=== PATIENT | male | born 1995 | race Caucasian/White ===

== ENCOUNTER 2018-09-25 16:51 | Emergency (ER) | payer BC ==
[2018-09-25] MEDS ORDERED: Sodium Chloride 0.9% 1000 ML 1,000 ML ONE (17:05)
[2018-09-25] MEDS ORDERED: Sodium Chloride 0.9% 1000 ML 1,000 ML IV STA (17:14)
--- NOTE | 2018-09-25 17:20 | ERPHSYRPT ---
- History of Present Illness Time Seen by Provider: 09/25/18 17:05 Source: patient, family Exam Limitations: clinical condition, intoxication Physician History: 23 y/o white male presents intoxicated with etoh [employer]. pts spouse and brother in law state pt began drinking mixed drinks of etoh and root beer at noon. they went to pick him up and he was vomiting and minimally responsive so they brought him here. he was not trying to over dose. just having fun Timing/Duration: today Severity: moderate Associated Symptoms: vomiting - Review of Systems Constitutional: No Symptoms Eyes: No Symptoms Ears, Nose, & Throat: No Symptoms Respiratory: No Symptoms Cardiac: No Symptoms Abdominal/Gastrointestinal: Vomiting Genitourinary Symptoms: No Symptoms Musculoskeletal: No Symptoms Skin: No Symptoms Neurological: Other (intoxication) Psychological: No Symptoms Endocrine: No Symptoms Hematologic/Lymphatic: No Symptoms Immunological/Allergic: No Symptoms All Other Systems: Reviewed and Negative - Past Medical History Pertinent Past Medical History: No Neurological History: No Pertinent History ENT History: No Pertinent History Cardiac History: No Pertinent History Respiratory History: No Pertinent History Endocrine Medical History: No Pertinent History Musculoskeletal History: No Pertinent History GI Medical History: No Pertinent History History: No Pertinent History Psycho-Social History: No Pertinent History Male Reproductive Disorders: No Pertinent History - Past Surgical History Past Surgical History: No Neuro Surgical History: No Pertinent History Cardiac: No Pertinent History Respiratory: No Pertinent History Gastrointestinal: No Pertinent History Genitourinary: No Pertinent History Musculoskeletal: No Pertinent History Male Surgical History: No Pertinent History - Nursing Vital Signs Nursing Vital Signs: Initial Vital Signs Pulse Rate 111 H 09/25/18 17:08 Respiratory Rate 20 09/25/18 17:08 Blood Pressure 153/90 09/25/18 17:08 O2 Sat by Pulse Oximetry 96 09/25/18 17:08 Pain Scale Pain Intensity 0 - Physical Exam General Appearance: moderate distress, alert, lethargy, other (intoxicated) Eye Exam: PERRL/EOMI Ears, Nose, Throat Exam: normal ENT inspection, moist mucous membranes Neck Exam: normal inspection, non-tender, supple, full range of motion Respiratory Exam: normal breath sounds, lungs clear, airway intact, No chest tenderness, No respiratory distress, No accessory muscle use, No rhonchi, No wheezing, No stridor Cardiovascular Exam: regular rate/rhythm, normal heart sounds, normal peripheral pulses Gastrointestinal/Abdomen Exam: soft, normal bowel sounds, No tenderness, No guarding, No rebound Rectal Exam: not done Back Exam: normal inspection, normal range of motion, vertebral tenderness, No CVA tenderness Extremity Exam: normal inspection, normal range of motion, pelvis stable Neurologic Exam: alert, oriented x 3, cooperative, other (intoxicated with etoh) Skin Exam: normal color, warm, dry Lymphatic Exam: No adenopathy SpO2 Interpretation: normal Oxygen Delivery: Room Air - Course Nursing assessment & vital signs reviewed: Yes Ordered Tests: Active Orders 24 hr Category Date Time Status Clean Catch Urine Specimen STAT Care 09/25/18 17:16 Active IV Insertion STAT Care 09/25/18 17:14 Active BMP Stat Lab 09/25/18 17:40 Completed CBC W DIFF Stat Lab 09/25/18 17:40 Completed ETHYL ALCOHOL Stat Lab 09/25/18 17:40 Completed UA W/RFX UR CULTURE Stat Lab 09/25/18 17:55 Completed Urine Triage Profile Stat Lab 09/25/18 17:55 Received Medication Summary Discontinued Medications Generic Name Dose Route Start Last Admin Trade Name Jim PRN Reason Stop Dose Admin Sodium Chloride Confirm 09/25/18 17:05 Sodium Chloride 0.9% 1000 Ml Administered 09/25/18 17:06 Dose 1,000 mls @ ud .ROUTE .STK-MED ONE Sodium Chloride 1,000 mls @ 999 mls/hr 09/25/18 17:14 09/25/18 17:19 Sodium Chloride 0.9% 1000 Ml IV 09/25/18 18:14 999 mls/hr .Q1H1M STA Administration Lab/Rad Data: Laboratory Result Diagrams 09/25/18 17:40 09/25/18 17:40 Laboratory Results 09/25/18 09/25/18 09/25/18 Range/Units 17:55 17:40 17:40 WBC 7.7 (4.0-10.5) K/mm3 RBC 4.97 (4.1-5.6) M/mm3 Hgb 14.9 (12.5-18.0) gm/dl Hct 44.0 (42-50) % MCV 88.5 (78-100) fl MCH 30.0 (26-32) pg MCHC 33.9 (32-36) g/dl RDW 12.8 (11.5-14.0) % Plt Count 229 (150-450) K/mm3 MPV 9.1 (6-9.5) fl Gran % 54.0 (36.0-66.0) % Eos # (Auto) 0.09 (0-0.5) Absolute Lymphs (auto) 2.78 (1.0-4.6) Absolute Monos (auto) 0.65 (0.0-1.3) Lymphocytes % 36.1 (24.0-44.0) % Monocytes % 8.4 (0.0-12.0) % Eosinophils % 1.2 (0.00-5.0) % Basophils % 0.3 (0.0-0.4) % Absolute Granulocytes 4.17 (1.4-6.9) Basophils # 0.02 (0-0.4) Sodium 142 (137-145) mmol/L Potassium 3.4 L (3.5-5.1) mmol/L Chloride 108 H (98-107) mmol/L Carbon Dioxide 21 L (22-30) mmol/L Anion Gap 16.7 H (5-15) MEQ/L BUN 12 (9-20) mg/dL Creatinine 0.83 (0.66-1.25) mg/dL Estimated GFR > 60.0 ML/MIN Glucose 93 (74-106) mg/dL Calcium 8.7 (8.4-10.2) mg/dL Urine Color STRAW (YELLOW) Urine Appearance CLEAR (CLEAR) Urine pH 5.0 (5-6) Ur Specific [place] 1.004 (1.005-1.025) Urine Protein NEGATIVE (Negative) Urine Ketones NEGATIVE (NEGATIVE) Urine Blood NEGATIVE (0-5) John/ul Urine Nitrite NEGATIVE (NEGATIVE) Urine Bilirubin NEGATIVE (NEGATIVE) Urine Urobilinogen NEGATIVE (0-1) mg/dL Ur Leukocyte Esterase NEGATIVE (NEGATIVE) Urine WBC (Auto) NONE (0-5) /HPF Urine RBC (Auto) NONE (0-2) /HPF U Epithel Cells (Auto) NONE (FEW) /HPF Urine Bacteria (Auto) NONE (NEGATIVE) /HPF Urine Mucus (Auto) SLIGHT (NEGATIVE) /HPF Urine Culture Reflexed NO (NO) Urine Glucose NEGATIVE (NEGATIVE) mg/dL Ethyl Alcohol 203 H (0-10) mg/dL - Progress Progress: improved Progress Note: 09/25/18 18:26 pt now awake and much more alert. n/v resolved after ivf and zofran Counseled pt/family regarding: lab results, diagnosis, need for follow-up - Departure Time of Disposition: 18:27 Departure Disposition: Home Clinical Impression: Alcohol intoxication, Vomiting Condition: Stable Critical Care Time: No Referrals: ANNMARIE WALTER [Primary Care Provider] - Additional Instructions: drink plenty of nonalcoholic clear liquids ie gatorade, soups, jello, juices. Prescriptions: Ondansetron HCl [Zofran] 4 mg PO TID PRN #10 tablet PRN Reason: Nausea/Vomiting
[2018-09-25 17:57] LABS: BASOPHIL % 0.3 % (0.0-0.4); Basophil (Absolute #) 0.02 (0-0.4); Eosinophil % 1.2 % (0.00-5.0); Eosinophil (Absolute #) 0.09 (0-0.5); Granulocyte Absolute (ANC) 4.17 (1.4-6.9); Hemoglobin 14.9 gm/dl (12.5-18.0); Lymphocyte (Absolute #) 2.78 (1.0-4.6); Lymphocytes % 36.1 % (24.0-44.0); Mean Cell Volume 88.5 fl (78-100); Mean Corpuscular Hgb Concent. 33.9 g/dl (32-36); Mean Platelet Volume 9.1 fl (6-9.5); Monocyte (Absolute #) 0.65 (0.0-1.3); Monocytes % 8.4 % (0.0-12.0); Platelet Count 229 K/mm3 (150-450); Red Blood Count 4.97 M/mm3 (4.1-5.6); Red Cell Distribution Width 12.8 % (11.5-14.0); White Blood Count 7.7 K/mm3 (4.0-10.5)
[2018-09-25 18:05] VITALS: BP 146/96; O2SAT 97
[2018-09-25 18:14] LABS: ANION GAP 16.7 MEQ/L (5-15); BLOOD UREA NITROGEN 12 mg/dL (9-20); CHLORIDE 108 mmol/L (98-107); Calcium 8.7 mg/dL (8.4-10.2); Carbon Dioxide 21 mmol/L (22-30); Creatinine 1 0.83 mg/dL (0.66-1.25); ETHYL ALCOHOL 203 mg/dL (0-10); Glucose 93 mg/dL (74-106); Potassium 3.4 mmol/L (3.5-5.1); SODIUM 142 mmol/L (137-145)
[2018-09-25 18:17] LABS: Appearance CLEAR (CLEAR); Bilirubin NEGATIVE (NEGATIVE); Blood NEGATIVE Ery/ul (0-5); Glucose NEGATIVE (NEGATIVE); Ketones NEGATIVE (NEGATIVE); Leukocyte Esterase NEGATIVE (NEGATIVE); Nitrite NEGATIVE (NEGATIVE); Protein,Urine Dip NEGATIVE (Negative); Specific Gravity 1.004 (1.005-1.025); Urobilinogen NEGATIVE mg/dL (0-1)
[2018-09-25 18:29] LABS: Amphetamine,Urine NEGATIVE (NEGATIVE); Barbiturate,Urine NEGATIVE (NEGATIVE); Benzodiazepine,Urine NEGATIVE (NEGATIVE); Cocaine,Urine NEGATIVE (NEGATIVE); Methadone,Urine NEGATIVE (NEGATIVE); Opiate,Urine NEGATIVE (NEGATIVE); PCP,Urine NEGATIVE (NEGATIVE); THC,Urine NEGATIVE (NEGATIVE)
[2018-09-25] MEDS ORDERED: Pepcid 20 MG VIAL IV ONE ×2 (18:52)
[2018-09-25 19:10] VITALS: PULSE 99
== END 2018-09-25 19:20 | disposition home or self-care (01) ==
LOC: ED 16:51
DX: F10.929 Alcohol use, unspecified with intoxication, unspecified (principal); R11.10 Vomiting, unspecified
CPT/HCPCS: 36000; 36415; 80048; 80307; 81001; 85025; 96360; 96374; 96375; 99284; G0480

== ENCOUNTER 2023-02-18 18:24 | Emergency (ER) | payer BC ==
[2023-02-18] MEDS ORDERED: SUBLIMAZE 100 MCG/2 ML IV ONE ×2 (19:04→19:24)
[2023-02-18] MEDS ORDERED: Zofran 4 MG/2 ML VIAL IV ONE (19:04)
[2023-02-18] MEDS ORDERED: SUBLIMAZE 100 MCG/2 ML ONE ×2 (19:04→19:32)
[2023-02-18] MEDS ORDERED: Zofran 4 MG/2 ML VIAL ONE (19:06)
--- NOTE | 2023-02-18 19:35 | ERPHSYRPT ---
- History of Present Illness Time Seen by Provider: 02/18/23 19:15 Source: patient Exam Limitations: no limitations Patient Subjective Stated Complaint: PT states "I jumped off the dock and popped my shoulder out." Triage Nursing Assessment: Pt presented alert and oriented X 3, skin pwd. Pt ambulates with an upright steady gait, able to speak in clear full sentences pt left shoulder has deformity, CSM X 4. Physician History: Left shoulder pain Patient complains dislocating shoulder jumping off of a dock Hx of prior dislocations and deltoid surgery on the left shoulder Patient cannot sleep unaffected side. Symptoms have been present for months. Labor intensive work, carries heavy objects. Pain relieved w/ NSAIDs. Denies any injuries or previous surgeries. No instability symptoms. No numbness and tingling. Occurred: just prior to arrival Method of Injury: fell Quality: throbbing Severity of Pain-Max: severe Severity of Pain-Current: severe Extremities Pain Location: shoulder: left Modifying Factors: Worsens With: movement Allergies/Adverse Reactions: clarithromycin [From Biaxin] Allergy (Verified 09/25/18 18:55) promethazine [From Phenergan] Allergy (Verified 09/25/18 18:55) Hx Tetanus, Diphtheria Vaccination/Date Given: Yes Hx Influenza Vaccination/Date Given: No Hx Pneumococcal Vaccination/Date Given: No Immunizations Up to Date: Yes Travel Risk - International Travel Have you traveled outside of the country in past 3 weeks: No - Coronavirus Screening Are you exhibiting any of the following symptoms?: No Close contact with a COVID-19 positive Pt in past 14-21 Days: No - Vaccine Status Have you recieved a Covid-19 vaccination: No - Review of Systems Constitutional: No Symptoms Musculoskeletal: Injury, Joint Pain (left shoulder) Skin: No Symptoms Neurological: No Symptoms - Past Medical History Pertinent Past Medical History: Yes Neurological History: No Pertinent History ENT History: No Pertinent History Cardiac History: No Pertinent History Respiratory History: No Pertinent History Endocrine Medical History: No Pertinent History Musculoskeletal History: No Pertinent History GI Medical History: No Pertinent History History: No Pertinent History Psycho-Social History: No Pertinent History Male Reproductive Disorders: No Pertinent History - Past Surgical History Past Surgical History: Yes Neuro Surgical History: No Pertinent History Cardiac: No Pertinent History Respiratory: No Pertinent History Gastrointestinal: No Pertinent History Genitourinary: No Pertinent History Musculoskeletal: No Pertinent History Male Surgical History: No Pertinent History Other Surgical History: left shoulder surgery - Social History Smoking Status: Unknown if ever smoked Exposure to second hand smoke: No Drug Use: none Patient Lives Alone: No - Nursing Vital Signs Nursing Vital Signs: Initial Vital Signs Temperature 97.6 F 02/18/23 18:32 Pulse Rate 89 02/18/23 18:32 Respiratory Rate 20 02/18/23 18:32 Blood Pressure 130/90 02/18/23 18:32 O2 Sat by Pulse Oximetry 98 02/18/23 18:32 Pain Scale Pain Intensity 0 - Physical Exam General Appearance: mild distress Shoulder Exam: deformity (left), limited ROM, pain Elbow/Forearm Exam: normal inspection, no evidence of injury Wrist Exam: normal inspection, no evidence of injury Hand Exam: normal inspection, no evidence of injury Neuro/Tendon Exam: normal sensation, responds to pain Mental Status Exam: alert, oriented x 3, cooperative Skin Exam: normal color, warm, dry SpO2 Interpretation: normal SpO2: 98 O2 Delivery: Room Air Procedures - Joint Reduction Timeout: Performed Joint Reduction Site: Left, shoulder Conscious Sedation: Yes Reduction Attempts: 1 Pre-Procedure Neurovascular Exam: neurovascular intact, well perfused, no neuro deficit Post Procedure Neurovascular Exam: neurovascular intact, unchanged from pre-exam Post Joint Reduction Film: joint reduced Progress: 80mg of Propofol given during procedure. Reduction achieved. Pain improved. Neurovascularly intact pre and post procedure. - Course Nursing assessment & vital signs reviewed: Yes - Radiology Exams Left Shoulder X-ray Interpretation: Interpreted by me, Other (anterior dislocation w/o fracture, repeat xray showed relocation) Ordered Tests: Active Orders 24 hr Category Date Time Status SHOULDER Stat Exams 02/18/23 18:55 Taken SHOULDER Stat Exams 02/18/23 19:56 Taken Standby STAT RT 02/18/23 20:06 Completed Medication Summary Discontinued Medications Generic Name Dose Route Start Last Admin Trade Name Freq PRN Reason Stop Dose Admin Fentanyl Citrate Confirm 02/18/23 19:04 Fentanyl Citrate 100 Mcg/2 Ml* Vial Administered 02/18/23 19:05 Dose 100 mcg .ROUTE .STK-MED ONE Fentanyl Citrate 50 mcg 02/18/23 19:04 02/18/23 19:07 Fentanyl Citrate 100 Mcg/2 Ml* Vial IV 02/18/23 19:05 50 mcg STAT ONE Administration Fentanyl Citrate 50 mcg 02/18/23 19:24 02/18/23 19:33 Fentanyl Citrate 100 Mcg/2 Ml* Vial IV 02/18/23 19:25 50 mcg STAT ONE Administration Fentanyl Citrate Confirm 02/18/23 19:32 Fentanyl Citrate 100 Mcg/2 Ml* Vial Administered 02/18/23 19:33 Dose 100 mcg .ROUTE .STK-MED ONE Propofol Confirm 02/18/23 19:44 Propofol 1000 Mg/100 Ml Bottle Administered 02/18/23 19:45 Dose 100 mls @ ud IV .STK-MED ONE Ondansetron HCl 4 mg 02/18/23 19:04 02/18/23 19:07 Ondansetron Hcl 4 Mg/2 Ml Vial IV 02/18/23 19:05 4 mg STAT ONE Administration Ondansetron HCl Confirm 02/18/23 19:06 Ondansetron Hcl 4 Mg/2 Ml Vial Administered 02/18/23 19:07 Dose 4 mg .ROUTE .STK-MED ONE - Progress Progress: improved Progress Note: Shoulder reduced. Neurovascularly intact. Placed in sling and advised to f/u w/ ortho w/in 5-7 days. Counseled pt/family regarding: need for follow-up Medical Desision Making - Diagnostic Testing Diagnostic test were ordered, analyzed, and reviewed by me: Yes Radiological Interpretation: Interpreted by me - Risk of complications The pt has a mod risk of morbidity or mortality based on: Need for minor surgical intervention in patient with know risk factors - Departure Departure Disposition: Home Clinical Impression: Recurrent dislocation, left shoulder Condition: Good Critical Care Time: No Referrals: ANNMARIE WALTER [Primary Care Provider] - Follow up/PCP as directed Instructions: Shoulder Dislocation (DC) Additional Instructions: You have been evaluated in the Emergency Department today for shoulder pain. Your evaluation, including physical exam and x-rays, revealed a shoulder dislocation. We have reduced your shoulder, please use the sling for comfort. We recommend you take 600mg ibuprofen every 6 hours or tylenol 650mg every 6 hours as needed for pain. If needed, you can alternate these medications so that you take one medication every 3 hours. For instance, at noon take ibuprofen, then at 3pm take tylenol, then at 6pm take ibuprofen. Please take your prescribed norco as directed as necessary for breakthrough pain. Do not drive or take medications containing tylenol while taking norco. Please follow up with your primary care physician within two days. Please follow up with an orthopedic surgeon in 1 week. Return to the Emergency Department if you experience worsening pain, numbness/tingling, change of color in your fingers, or any other concerning symptoms. Thank you for choosing us for your care.
[2023-02-18] MEDS ORDERED: Propofol 1000 mg/100 ml Bottle 100 ML IV ONE (19:44)
[2023-02-18 20:34] VITALS: BP 128/68; PULSE 78
[2023-02-18 20:35] VITALS: O2SAT 98
--- NOTE | 2023-02-19 08:32 | XRAY ---
Indication: Pain following fall. Comparison: None 3 view left shoulder demonstrates anterior inferior humeral head dislocation. No other bony, articular, or soft tissue abnormalities.
--- NOTE | 2023-02-19 08:32 | XRAY ---
Indication: Post reduction. Comparison: Taken earlier in the day. AP/lateral left shoulder demonstrates successful reduction humeral head dislocation. No other bony, articular, or soft tissue abnormalities.
== END 2023-02-18 20:45 | disposition home or self-care (01) ==
LOC: ED 18:24
DX: M24.412 Recurrent dislocation, left shoulder (principal); Z28.310 Unvaccinated for COVID-19
CPT/HCPCS: 23650; 73030; 94799; 96374; 96375; 96376; 99284; J2405; J2704; J3010

== ENCOUNTER 2024-04-18 17:18 | Emergency (ER) | payer BC ==
[2024-04-18 17:31] VITALS: TEMP 98.7; O2SAT 100
[2024-04-18] MEDS ORDERED: SUBLIMAZE 100 MCG/2 ML ONE (17:36)
[2024-04-18] MEDS ORDERED: Zofran 4 MG/2 ML VIAL ONE (17:37)
[2024-04-18] MEDS: SUBLIMAZE 100 MCG/2 ML IV ONE (17:40)
[2024-04-18] MEDS: Zofran 4 MG/2 ML VIAL IV ONE (17:40)
--- NOTE | 2024-04-18 17:40 | ERPHSYRPT ---
- History of Present Illness Time Seen by Provider: 04/18/24 17:40 Source: patient Exam Limitations: no limitations Patient Subjective Stated Complaint: left shoulder disslocation Triage Nursing Assessment: Pt brought to the ER by his , hypertensive, rates pain as 10/10, left shoulder is obviously disslocated, pulses normal, able to move fingers, skin n/w/d, denies any other injuries Physician History: Patient was wakeboarding and fell on a wave causing him to dislocate his left shoulder. Patient has a history of left shoulder dislocations with this being his fourth. He has no range of motion, 10 out of 10 pain with no numbness or tingling. Occurred: just prior to arrival Method of Injury: direct blow, sports injury Quality: constant, sharpness, throbbing Severity of Pain-Max: severe Severity of Pain-Current: severe Extremities Pain Location: shoulder: left Modifying Factors: Improves With: immobilization. Worsens With: movement Associated Symptoms: none Allergies/Adverse Reactions: clarithromycin [From Biaxin] Allergy (Verified 04/18/24 17:31) promethazine [From Phenergan] Allergy (Verified 04/18/24 17:31) Hx Tetanus, Diphtheria Vaccination/Date Given: Yes Hx Influenza Vaccination/Date Given: No Hx Pneumococcal Vaccination/Date Given: No Travel Risk - International Travel Have you traveled outside of the country in past 3 weeks: No - Emerging Infectious Disease Are you exhibiting symptoms associated with any current EIDs: No - Review of Systems All Other Systems: Reviewed and Negative - Past Medical History Pertinent Past Medical History: Yes Neurological History: No Pertinent History ENT History: No Pertinent History Cardiac History: No Pertinent History Respiratory History: No Pertinent History Endocrine Medical History: No Pertinent History Musculoskeletal History: No Pertinent History GI Medical History: No Pertinent History History: No Pertinent History Psycho-Social History: No Pertinent History Male Reproductive Disorders: No Pertinent History - Past Surgical History Past Surgical History: Yes Neuro Surgical History: No Pertinent History Cardiac: No Pertinent History Respiratory: No Pertinent History Gastrointestinal: No Pertinent History Genitourinary: No Pertinent History Musculoskeletal: No Pertinent History Male Surgical History: No Pertinent History Other Surgical History: left shoulder surgery - Social History Smoking Status: Current every day smoker Exposure to second hand smoke: Yes Drug Use: none Patient Lives Alone: No - Social Determinants of Health Will the patient participate in the screening: Yes Do you worry about a steady place to live?: No Do you have any problems with any of the following?: No known problems In the past 12 months,have you had to go without utilities?: No Transportation Issues: No Has anyone in your support network made you feel unsafe?: No Have you or anyone in your house had to go without enough: No - Nursing Vital Signs Nursing Vital Signs: Initial Vital Signs Temperature 98.7 F 04/18/24 17:26 Pulse Rate 75 04/18/24 17:26 Blood Pressure 157/96 04/18/24 17:26 O2 Sat by Pulse Oximetry 100 04/18/24 17:26 Pain Scale Pain Intensity 0 - Physical Exam General Appearance: moderate distress Shoulder Exam: asymmetry, bone tenderness, deformity (left), limited ROM, pain, soft tissue tenderness Elbow/Forearm Exam: normal inspection, non-tender, no evidence of injury, normal ROM Wrist Exam: normal inspection, non-tender, no evidence of injury, normal ROM Hand Exam: normal inspection, non-tender, no evidence of injury, normal ROM Neuro/Tendon Exam: normal sensation, normal motor functions Mental Status Exam: alert, oriented x 3, cooperative Skin Exam: normal color, warm, dry SpO2 Interpretation: normal SpO2: 100 O2 Delivery: Room Air Procedures - Joint Reduction Time of Procedure: 18:05 Timeout: Performed Joint Reduction Site: Left, shoulder Conscious Sedation: Yes Reduction Attempts: 1 Pre-Procedure Neurovascular Exam: neurovascular intact, well perfused, no neuro deficit Post Procedure Neurovascular Exam: neurovascular intact, good alignment, unchanged from pre-exam Post Joint Reduction Film: no fracture seen - Course Nursing assessment & vital signs reviewed: Yes - Radiology Exams Left Shoulder X-ray Interpretation: Interpreted by me, Other (anterior dislocation) Ordered Tests: Active Orders 24 hr Category Date Time Status IV Insertion STAT Care 04/18/24 17:33 Completed SHOULDER Stat Exams 04/18/24 17:32 Ordered SHOULDER Stat Exams 04/18/24 18:06 Ordered Medication Summary Discontinued Medications Generic Name Dose Route Start Last Admin Trade Name Freq PRN Reason Stop Dose Admin Fentanyl Citrate 25 mcg 04/18/24 17:32 04/18/24 17:40 Fentanyl Citrate 100 Mcg/2 Ml* Vial IV 04/18/24 17:33 25 mcg STAT ONE Administration Fentanyl Citrate Confirm 04/18/24 17:36 Fentanyl Citrate 100 Mcg/2 Ml* Vial Administered 04/18/24 17:37 Dose 100 mcg .ROUTE .STK-MED ONE Sodium Chloride 1,000 mls @ 999 mls/hr 04/18/24 17:49 04/18/24 18:50 Sodium Chloride 0.9% 1000 Ml IV 04/18/24 18:49 Infused .Q1H1M STA Infusion Sodium Chloride Confirm 04/18/24 17:50 Sodium Chloride 0.9% 1000 Ml Administered 04/18/24 17:51 Dose 1,000 mls @ ud .ROUTE .STK-MED ONE Ondansetron HCl Confirm 04/18/24 17:37 Ondansetron Hcl 4 Mg/2 Ml Vial Administered 04/18/24 17:38 Dose 4 mg .ROUTE .STK-MED ONE Ondansetron HCl 4 mg 04/18/24 17:38 04/18/24 17:40 Ondansetron Hcl 4 Mg/2 Ml Vial IV 04/18/24 17:39 4 mg STAT ONE Administration Propofol 70 mg 04/18/24 17:42 04/18/24 18:03 Propofol 10 Mg/Ml 20ml Vial IV 04/18/24 17:43 70 mg STAT ONE Administration - Progress Progress: improved Progress Note: Successful reduction of the left shoulder with Idania maneuver. Remains neurovascularly intact after relocation. Placed in sling and advised to follow- up for an MR arthrogram of the left shoulder. Sent home with [place] 5/325. Counseled pt/family regarding: diagnosis, need for follow-up, rad results Medical Desision Making - Diagnostic Testing Diagnostic test were ordered, analyzed, and reviewed by me: Yes Radiological Interpretation: Interpreted by me - Risk of complications The pt has a mod risk of morbidity or mortality based on: Need for prescription drug management - Departure Departure Disposition: Home Clinical Impression: Recurrent dislocation, left shoulder Condition: Good Critical Care Time: No Referrals: ANNMARIE WALTER [Primary Care Provider] - Follow up/PCP as directed Instructions: Shoulder Dislocation Prescriptions: Hydrocodone/Acetaminophen [Hydrocodone-Acetamin 5-325 mg] 1 tab PO Q6HPRN PRN 3 Days #12 tablet MDD 4 PRN Reason: Pain
[2024-04-18] MEDS ORDERED: Sodium Chloride 0.9% 1000 ML 1,000 ML ONE (17:50)
[2024-04-18] MEDS: Sodium Chloride 0.9% 1000 ML 1,000 ML IV STA (17:52)
[2024-04-18] MEDS: DIPRIVAN 200 MG/20 ML IV ONE (18:03)
[2024-04-18 18:51] VITALS: BP 126/67; PULSE 78; RESP 17
--- NOTE | 2024-04-18 22:29 | XRAY ---
Indication: Pain following fall. Comparison: February 18, 2023 3 view left shoulder demonstrates new anterior-inferior humeral head dislocation. No other bony, articular, or soft tissue abnormalities.
--- NOTE | 2024-04-18 22:31 | XRAY ---
Indication: Post reduction. Comparison: Taken earlier in the day. 3 view left shoulder demonstrates successful reduction previous humeral head dislocation. No other bony, articular, or soft tissue abnormalities.
== END 2024-04-18 18:56 | disposition home or self-care (01) ==
LOC: ED 17:18
DX: M24.412 Recurrent dislocation, left shoulder (principal); Z79.891 Long term (current) use of opiate analgesic; Z72.0 Tobacco use
CPT/HCPCS: 23655; 36000; 73030; 96374; 96375; 99284; J2405; J2704; J3010

== ENCOUNTER 2024-11-04 13:12 | Emergency (ER) | payer BC ==
[2024-11-04] MEDS: SUBLIMAZE 100 MCG/2 ML IV ONE (13:46)
[2024-11-04 13:48] LABS: Absolute Neutrophil Ct (ANC) 6.41 x10^3/uL (1.78-5.38); BASOPHIL % 0.5 % (0.2-1.2); Basophil (Absolute #) 0.05 x10^3/uL (0.01-0.08); Eosinophil % 0.7 % (0.8-7.0); Eosinophil (Absolute #) 0.07 x10^3/uL (0.04-0.54); Hematocrit 44.8 % (40.1-51.0); Hemoglobin 15.5 g/dL (13.7-17.5); IMMATURE GRAN # 0.06 x10^3u/L (0.001-0.031); IMMATURE GRAN % 0.6 % (0.001-0.429); Lymphocyte (Absolute #) 2.65 x10^3/uL (1.32-3.57); Lymphocytes % 26.9 % (21.8-53.1); Mean Corpuscular Hemoglobin 29.8 pg (25.7-32.2); Mean Corpuscular Hgb Concent. 34.6 g/dL (32.3-36.5); Mean Platelet Volume 8.5 fL (9.4-12.4); Monocyte (Absolute #) 0.61 x10^3/uL (0.30-0.82); Monocytes % 6.2 % (5.3-12.2); Neutrophil % 65.1 % (34.0-67.9); Platelet Count 273 x10^3/uL (163-337); Red Blood Count 5.21 x10^6/uL (4.63-6.08); Red Cell Distribution Width 11.9 % (11.6-14.4); White Blood Count 9.9 x10^3/uL (4.23-9.07)
[2024-11-04] MEDS ORDERED: Hydromorphone 1 mg/ml Injection ONE (13:51)
[2024-11-04] MEDS ORDERED: Sodium Chloride 0.9% 1000 ML 1,000 ML ONE (13:51)
[2024-11-04] MEDS ORDERED: Zofran 4 MG/2 ML VIAL ONE (13:51)
[2024-11-04] MEDS: Hydromorphone 1 mg/ml Injection IV ONE (13:53)
[2024-11-04] MEDS: Zofran 4 MG/2 ML VIAL IV ONE (13:53)
[2024-11-04] MEDS: Sodium Chloride 0.9% 1000 ML 1,000 ML IV STA (13:53)
[2024-11-04 14:05] LABS: ALBUMIN 4.8 g/dL (3.5-5.0); ANION GAP 18.1 MEQ/L (5-15); BILIRUBIN,TOTAL 0.7 mg/dL (0.2-1.3); Calcium 9.5 mg/dL (8.4-10.2); Creatinine 1 1.08 mg/dL (0.66-1.25); EST GLOMERULAR FILTRATION RATE 94.7 ML/MIN; MAGNESIUM 1.9 mg/dL (1.6-2.3); Total Protein 7.5 g/dL (6.3-8.2)
--- NOTE | 2024-11-04 14:13 | XRAY ---
Indication: Status post fall. Dislocation. Comparison: April 18, 2024 3 view left shoulder again demonstrates recurrent anterior inferior humeral head dislocation. New comminuted humeral head fracture with displaced fracture fragment.
--- NOTE | 2024-11-04 14:13 | XRAY ---
Indication: Syncope. Comparison: None Portable chest demonstrates normal heart and lungs. Bony thorax demonstrates old right clavicle fracture. Left shoulder fracture dislocation reported separately.
--- NOTE | 2024-11-04 14:51 | ERPHSYRPT ---
- History of Present Illness Time Seen by Provider: 11/04/24 13:23 Source: patient Exam Limitations: no limitations Patient Subjective Stated Complaint: Pt states "I am not sure what happened. I fell but I do not know why. My left shoulder hurts and I cannot move my left a rm. I also hit my head." Triage Nursing Assessment: Pt presented alert and oriented X 3, skin pwd. pt left shoulder tender, slight deformity noted. pt has small laceration noted to back of head, bleeding controlled. Physician History: 29-year-old healthy male presented in the ER after he was feeding animals and somehow fell, hit his head and left shoulder. Patient has laceration head and deformity of left shoulder. Does have history of left shoulder dislocation in the past. Patient reports moderate to severe sharp shooting pain left shoulder with reproducibility on minimal movement. No numbness or tingling in the left hand. Denies any chest pain palpitations or shortness of breath before or after the fall. Denies feeling dizzy or lightheaded before or after. Patient denies any visual changes, difficulty speech. Allergies/Adverse Reactions: clarithromycin [From Biaxin] Allergy (Verified 04/18/24 17:31) promethazine [From Phenergan] Allergy (Verified 04/18/24 17:31) Hx Tetanus, Diphtheria Vaccination/Date Given: Yes Hx Influenza Vaccination/Date Given: No Hx Pneumococcal Vaccination/Date Given: No Immunizations Up to Date: No Travel Risk - International Travel Have you traveled outside of the country in past 3 weeks: No - Emerging Infectious Disease Are you exhibiting symptoms associated with any current EIDs: No - Review of Systems Constitutional: No Symptoms Eyes: No Symptoms Ears, Nose, & Throat: No Symptoms Respiratory: No Symptoms Cardiac: No Symptoms Abdominal/Gastrointestinal: No Symptoms Genitourinary Symptoms: No Symptoms Musculoskeletal: Deformity, Fall, Injury, Joint Pain, Joint Swelling Skin: No Symptoms Neurological: Headache Psychological: No Symptoms Hematologic/Lymphatic: No Symptoms Immunological/Allergic: No Symptoms - Past Medical History Pertinent Past Medical History: Yes Neurological History: No Pertinent History ENT History: No Pertinent History Cardiac History: No Pertinent History Respiratory History: No Pertinent History Endocrine Medical History: No Pertinent History Musculoskeletal History: No Pertinent History GI Medical History: No Pertinent History History: No Pertinent History Psycho-Social History: No Pertinent History Male Reproductive Disorders: No Pertinent History - Past Surgical History Past Surgical History: Yes Neuro Surgical History: No Pertinent History Cardiac: No Pertinent History Respiratory: No Pertinent History Gastrointestinal: No Pertinent History Genitourinary: No Pertinent History Musculoskeletal: No Pertinent History Male Surgical History: No Pertinent History Other Surgical History: left shoulder surgery - Social History Smoking Status: Current every day smoker Exposure to second hand smoke: Yes Drug Use: none Patient Lives Alone: No - Social Determinants of Health Will the patient participate in the screening: Yes Do you worry about a steady place to live?: No Do you have any problems with any of the following?: No known problems In the past 12 months,have you had to go without utilities?: No Transportation Issues: No Has anyone in your support network made you feel unsafe?: No Have you or anyone in your house had to go without enough: No - Nursing Vital Signs Nursing Vital Signs: Initial Vital Signs Temperature 97.8 F 11/04/24 13:24 Pulse Rate 101 H 11/04/24 13:24 Respiratory Rate 20 11/04/24 13:24 Blood Pressure 135/83 11/04/24 13:24 O2 Sat by Pulse Oximetry 94 L 11/04/24 13:24 Pain Scale Pain Intensity 2 - [place] Coma Score Best Eye Response (Lane): (4) open spontaneously Best Verbal Response ([place]): (5) oriented Best Motor Response ([place]): (6) obeys commands Lane Total: 15 - Physical Exam General Appearance: no apparent distress, alert Head Injury: contusions, lacerations (Puncture wound posterior parietal area), tenderness, No swelling Eye Exam: PERRL/EOMI, eyes nml inspection ENT Exam: airway nml, No evidence of ENT injury, No dental injury Neck Exam: supple, trachea midline, full range of motion, normal alignment, normal inspection Respiratory/Chest Exam: normal breath sounds, respiratory distress, No chest tenderness Cardiovascular Exam: normal heart sounds, regular rate/rhythm Gastrointestinal Exam: soft, normal bowel sounds, No tenderness Back Exam: normal inspection, normal range of motion Extremity Exam: joint swelling, limited range of motion, bony point tenderness, pain with movement (Left shoulder with Hill-Sachs deformity), tenderness Neurologic Exam: alert, oriented x 3, cooperative, 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, nml cerebellar function, sensation nml, No motor deficits Skin Exam: normal color SpO2 Interpretation: normal SpO2: 94 O2 Delivery: Room Air Procedures - Procedural Sedation Indication: fracture reduction, joint reduction Preparation: consent signed, capnographry, iv access, previous anesthia/sedation without complications, constant attendance, quality control systems manager, oxygen, procedure explained, pulse oximeter, suction Sedation Parenteral: Etomidate, Propofol (Diprovan), Dilaudid Response during procedure: light sedation Post-Procedure Response: return to baseline mental status, vital signs stable - Course EKG Interpreted by Me: RATE (76), Sinus Rhythm, NORMAL AXIS, NORMAL INTERVALS, NORMAL QRS Ordered Tests: Active Orders 24 hr Category Date Time Status AMA [Release AMA] OM.NOW Care 11/04/24 17:31 Active CO2 Monitoring STAT Care 11/04/24 16:00 Active Rn Intern STAT Care 11/04/24 13:34 Active Clean Catch Urine Specimen STAT Care 11/04/24 14:00 Active EKG-ER Only STAT Care 11/04/24 13:32 Active IV Insertion STAT Care 11/04/24 13:32 Active Sling Application STAT Care 11/04/24 16:42 Active CERVICAL SPINE WO CONTRAST [CT] Stat Exams 11/04/24 13:33 Completed CHEST 1 VIEW (PORTABLE) Stat Exams 11/04/24 13:34 Completed HEAD WITHOUT CONTRAST [CT] Stat Exams 11/04/24 13:33 Completed SHOULDER Stat Exams 11/04/24 13:34 Completed SHOULDER Stat Exams 11/04/24 16:04 Completed CBC W DIFF Stat Lab 11/04/24 13:51 Completed CK-Creatinine Phosphokinase Stat Lab 11/04/24 13:51 Completed CMP Stat Lab 11/04/24 13:51 Completed ETHYL ALCOHOL Stat Lab 11/04/24 14:00 Completed MAGNESIUM Stat Lab 11/04/24 13:51 Completed TROPONIN Q4H Lab 11/04/24 13:51 Completed TROPONIN Q4H Lab 11/04/24 17:02 Completed TROPONIN Q4H Lab 11/04/24 21:45 Ordered Urine Triage Profile Stat Lab 11/04/24 Ordered Standby STAT RT 11/04/24 16:00 Active Medication Summary Discontinued Medications Generic Name Dose Route Start Last Admin Trade Name Freq PRN Reason Stop Dose Admin Etomidate 10 mg 11/04/24 16:15 Etomidate 20 Mg/10 Ml Amp IV 11/04/24 16:16 .STK-MED ONE Fentanyl Citrate 50 mcg 11/04/24 13:32 11/04/24 13:46 Fentanyl Citrate 100 Mcg/2 Ml* Vial IV 11/04/24 13:33 Not Given STAT ONE Hydromorphone HCl 1 mg 11/04/24 13:50 11/04/24 13:53 Hydromorphone 1 Mg/1ml Inj IV 11/04/24 13:51 1 mg STAT ONE Administration Hydromorphone HCl Confirm 11/04/24 13:51 Hydromorphone 1 Mg/1ml Inj Administered 11/04/24 13:52 Dose 1 mg .ROUTE .STK-MED ONE Hydromorphone HCl 1 mg 11/04/24 16:15 Hydromorphone 1 Mg/1ml Inj IV 11/04/24 16:16 .STK-MED ONE Sodium Chloride 1,000 mls @ 999 mls/hr 11/04/24 13:32 11/04/24 15:53 Sodium Chloride 0.9% 1000 Ml IV 11/04/24 14:32 Infused .Q1H1M STA Infusion Sodium Chloride Confirm 11/04/24 13:51 Sodium Chloride 0.9% 1000 Ml Administered 11/04/24 13:52 Dose 1,000 mls @ ud .ROUTE .STK-MED ONE Lidocaine HCl Confirm 11/04/24 15:57 Lidocaine Hcl 1% 20 Ml Mdv 20 Ml Ml Administered 11/04/24 15:58 Dose 20 ml .ROUTE .STK-MED ONE Ondansetron HCl 4 mg 11/04/24 13:32 11/04/24 13:53 Ondansetron Hcl 4 Mg/2 Ml Vial IV 11/04/24 13:33 4 mg STAT ONE Administration Ondansetron HCl Confirm 11/04/24 13:51 Ondansetron Hcl 4 Mg/2 Ml Vial Administered 11/04/24 13:52 Dose 4 mg .ROUTE .STK-MED ONE Propofol 150 mg 11/04/24 16:15 Propofol 200 Mg/20 Ml Vial IV 11/04/24 16:16 .STK-MED ONE Lab/Rad Data: Laboratory Result Diagrams 11/04/24 13:51 11/04/24 13:51 Laboratory Results 11/04/24 11/04/24 11/04/24 Range/Units 17:02 14:00 13:51 WBC (4.23-9.07) x10^3/uL RBC (4.63-6.08) x10^6/uL Hgb (13.7-17.5) g/dL Hct (40.1-51.0) % MCV (79.0-92.2) fL MCH (25.7-32.2) pg MCHC (32.3-36.5) g/dL RDW (11.6-14.4) % Plt Count (163-337) x10^3/uL MPV (9.4-12.4) fL Gran % (34.0-67.9) % Immature Gran % (Auto) (0.001-0.429) % Nucleat RBC Rel Count (0.00-0.2) % Eos # (Auto) (0.04-0.54) x10^3/uL Immature Gran # (Auto) (0.001-0.031) x10^3u/L Absolute Lymphs (auto) (1.32-3.57) x10^3/uL Absolute Monos (auto) (0.30-0.82) x10^3/uL Absolute Nucleated RBC (0.00-0.012) x10^3u/L Lymphocytes % (21.8-53.1) % Monocytes % (5.3-12.2) % Eosinophils % (0.8-7.0) % Basophils % (0.2-1.2) % Absolute Granulocytes (1.78-5.38) x10^3/uL Basophils # (0.01-0.08) x10^3/uL Sodium (135-145) mmol/L Potassium (3.5-5.1) mmol/L Chloride (98-107) mmol/L Carbon Dioxide (22-30) mmol/L Anion Gap (5-15) MEQ/L BUN (9-20) mg/dL Creatinine (0.66-1.25) mg/dL Estimated GFR ML/MIN Glucose (74-106) mg/dL Calcium (8.4-10.2) mg/dL Magnesium (1.6-2.3) mg/dL Total Bilirubin (0.2-1.3) mg/dL AST (17-59) U/L ALT (0-50) U/L Alkaline Phosphatase (38-126) U/L Creatine Kinase (55-170) U/L Troponin I < 0.012 < 0.012 (0.000-0.033) ng/mL Serum Total Protein (6.3-8.2) g/dL Albumin (3.5-5.0) g/dL Ethyl Alcohol < 10 (0-10) mg/dL 11/04/24 11/04/24 Range/Units 13:51 13:51 WBC 9.9 H (4.23-9.07) x10^3/uL RBC 5.21 (4.63-6.08) x10^6/uL Hgb 15.5 (13.7-17.5) g/dL Hct 44.8 (40.1-51.0) % MCV 86.0 (79.0-92.2) fL MCH 29.8 (25.7-32.2) pg MCHC 34.6 (32.3-36.5) g/dL RDW 11.9 (11.6-14.4) % Plt Count 273 (163-337) x10^3/uL MPV 8.5 L (9.4-12.4) fL Gran % 65.1 (34.0-67.9) % Immature Gran % (Auto) 0.6 H (0.001-0.429) % Nucleat RBC Rel Count 0.0 (0.00-0.2) % Eos # (Auto) 0.07 (0.04-0.54) x10^3/uL Immature Gran # (Auto) 0.06 H (0.001-0.031) x10^3u/L Absolute Lymphs (auto) 2.65 (1.32-3.57) x10^3/uL Absolute Monos (auto) 0.61 (0.30-0.82) x10^3/uL Absolute Nucleated RBC 0.00 (0.00-0.012) x10^3u/L Lymphocytes % 26.9 (21.8-53.1) % Monocytes % 6.2 (5.3-12.2) % Eosinophils % 0.7 L (0.8-7.0) % Basophils % 0.5 (0.2-1.2) % Absolute Granulocytes 6.41 H (1.78-5.38) x10^3/uL Basophils # 0.05 (0.01-0.08) x10^3/uL Sodium 138 (135-145) mmol/L Potassium 4.0 (3.5-5.1) mmol/L Chloride 104 (98-107) mmol/L Carbon Dioxide 20 L (22-30) mmol/L Anion Gap 18.1 H (5-15) MEQ/L BUN 13 (9-20) mg/dL Creatinine 1.08 (0.66-1.25) mg/dL Estimated GFR 94.7 ML/MIN Glucose 93 (74-106) mg/dL Calcium 9.5 (8.4-10.2) mg/dL Magnesium 1.9 (1.6-2.3) mg/dL Total Bilirubin 0.70 (0.2-1.3) mg/dL AST 34 (17-59) U/L ALT 30 (0-50) U/L Alkaline Phosphatase 75 (38-126) U/L Creatine Kinase 173 H (55-170) U/L Troponin I (0.000-0.033) ng/mL Serum Total Protein 7.5 (6.3-8.2) g/dL Albumin 4.8 (3.5-5.0) g/dL Ethyl Alcohol (0-10) mg/dL - Progress Progress: improved Progress Note: 11/04/24 17:47 29-year-old is evaluated in the ER for syncope collapse with deformity to left shoulder and puncture wound scalp. Patient has nonfocal neuroexam throughout stay in the ER. Is given fluids and symptomatic treatment, workup showed normal white count, fairly unremarkable chemistries except for some element of dehydration. EKG is normal sinus rhythm with no acute ischemic changes and negative troponins. CT head is negative for any acute intracranial findings. Negative CT cervical spine. Left shoulder has a fracture dislocation, discussed with Dr. Westbrook who has seen patient and I have administered conscious sedation and he did the reduction, recommended outpatient follow-up with upper extremity/sports orthopedics. Patient wants to follow-up with bone and joint Dr. Jeffries. Patient is unaware of the fact why he had a syncopal episode, do not have any obvious reason for it. I have recommended observation admission for further evaluation but patient does not want to stay in the hospital at all. Discussed with patient about risk of leaving AGAINST MEDICAL ADVICE which would not only delay the diagnosis but worsening of underlying condition which could be life-threatening which patient and his understand and they decided to leave AGAINST MEDICAL ADVICE. Patient is not confused or altered at all. Sign paperwork and walked out of the ER in a stable condition. Discussed signs symptoms of worsening needing return to ER which they seem understanding. Discussed with Dr.: Other (Dr. Westbrook orthopedics) Counseled pt/family regarding: lab results, diagnosis, rad results Medical Desision Making - Independent Historian Additional History obtained from: Spouse - Discussion of managment Care discussed with:: specialist (Dr. Westbrook orthopedics) Reviewed:: Test results Agreed on:: Treatment plan Will see patient: in ED - Diagnostic Testing Diagnostic test were ordered, analyzed, and reviewed by me: Yes Radiological Interpretation: Interpreted by me, Reviewed by me - Risk of complications The pt has a mod risk of morbidity or mortality based on: Need for prescription drug management, Need for minor surgical intervention in patient with know risk factors The pt has a high risk of morbidity or mortality based on: Need for major surgery in patient with known risk factors - Departure Departure Disposition: AMA Clinical Impression: Recurrent dislocation, left shoulder, Shoulder fracture, left, Syncope and collapse, Puncture wound of scalp, Fall Condition: Stable Critical Care Time: No Referrals: ANNMARIE WALTER [Primary Care Provider] - Follow up/PCP as directed Instructions: Syncope (Fainting) (DC), Procedural Sedation, Adult ED Additional Instructions: Follow-up with your primary care and orthopedics for reevaluation. Take pain medications as needed. Return to ER if feeling dizzy lightheaded, chest pain palpitations or shortness of breath etc. Avoid exertional activity. Prescriptions: Hydrocodone/Acetaminophen [Hydrocodone-Acetamin 7.5-325] 1 each PO Q4H PRN PRN #20 tablet MDD 6 PRN Reason: Moderate To Severe Pain
--- NOTE | 2024-11-04 14:57 | XRAY ---
Indication: Syncope. Head injury. Multiple contiguous axial images obtained through the head without contrast. Comparison: None Normal appearing brain parenchyma, ventricles, and bony calvarium. Visualized paranasal sinuses and mastoid air cells are clear. Impression: Normal CT head without contrast exam.
--- NOTE | 2024-11-04 14:57 | XRAY ---
Indication: Syncope. Head injury. Multiple contiguous axial images obtained through the cervical spine. Sagittal and coronal reformatted images obtained. Comparison: None Normal bones, articulation, and visualized noncontrasted soft tissues. Impression: Normal CT cervical spine.
[2024-11-04] MEDS ORDERED: XYLOCAINE 1% HCL 20 ML MDV ONE (15:57)
[2024-11-04] MEDS ORDERED: Hydromorphone 1 mg/ml Injection IV ONE (16:15)
[2024-11-04] MEDS ORDERED: Amidate 20 MG/10 ML IV ONE (16:15)
[2024-11-04] MEDS ORDERED: propofoL IV ONE (16:15)
--- NOTE | 2024-11-04 16:35 | PCM.CONS ---
History of Present Illness - Consult Date of Consultation Date: 11/04/24 Reason for Consult: Left anterior shoulder dislocation with greater tuberosity fracture, recurrent Consulting Provider: KAREN DEGROOT MD - [facility] History of Present Illness: is a 29 year [id number] who fell while feeding the chickens today and sustained a left anterior shoulder dislocation with greater tuberosity fracture. Patient has had multiple dislocations over the years and has had prior surgery on the shoulder [address] Lira but thinks it was for his deltoid. He has dislocated 4 times this year with low trauma events. Sometimes he reduces on his own. He has seen Dr. Bennett In the last 2 months and has not MRI arthrogram performed. He has not followed up on this yet. Patient may have had a brief loss of consciousness after his fall today and had a head laceration treated by the ER doctor. He has 8/10 pain. No numbness or tingling. No other injuries. He has no other serious health problems. He works as a senior qa engineer. He vapes. He is here with his who helps with history. No complaints of chest pain shortness of breath fevers or chills Medications & Allergies Allergies/Adverse Reactions: Allergies Allergy/AdvReac Type Severity Reaction Status Date / Time clarithromycin [From Biaxin] Allergy Verified 04/18/24 17:31 promethazine [From Phenergan] Allergy Verified 04/18/24 17:31 - Past Medical History Past Medical History: Yes Neurological History: No Pertinent History ENT History: No Pertinent History Cardiac History: No Pertinent History Respiratory History: No Pertinent History Endocrine Medical History: No Pertinent History Musculoskelatal History: No Pertinent History GI Medical History: No Pertinent History History: No Pertinent History Pyscho-Social History: No Pertinent History Male Reproductive Disorders: No Pertinent History - Past Surgical History Past Surgical History: Yes Neuro Surgical History: No Pertinent History Cardiac History: No Pertinent History Respiratory Surgery: No Pertinent History GI Surgical History: No Pertinent History Genitourinary Surgical Hx: No Pertinent History Musculskeletal Surgical Hx: No Pertinent History Male Surgical History: No Pertinent History Other Surgical History: left shoulder surgery - Social History Smoking Status: Current every day smoker Exposure to second hand smoke: Yes Alcohol: Daily Drug Use: none - Social Determinants of Health Will the patient participate in the screening: Yes Do you worry about a steady place to live?: No Do you have any problems with any of the following?: No known problems In the past 12 months,have you had to go without utilities?: No Have you or anyone in your house had to go without enough: No Transportation Issues: No Has anyone in your support network made you feel unsafe?: No - Nursing Vital Signs Nursing Vital Signs: Vital Signs - 24 hr Temp Pulse Resp BP Pulse Ox 11/04/24 16:27 97.8 F 71 20 155/91 98 11/04/24 15:44 74 20 140/70 98 11/04/24 14:53 78 18 142/81 100 11/04/24 14:51 94 L 11/04/24 13:24 97.8 F 101 H 20 135/83 94 L - Physical Exam SpO2: 98 - Narrative Narrative Physical Exam: Ortho Physical Exam Pleasant male,No apparent disstress, alert and O x 3, muscular, left shoulder exam shows a anterior scar which appears like a Bankart repair scar. He cannot internally rotate beyond neutral. Tender with motion. Good sensation of the deltoid. 5/5 radial median and ulnar nerve function with good sensation radial median and ulnar nerve distribution distally. 1+ radial pulse. X-ray shows a displaced greater tuberosity fracture with anterior-inferior dislocation of the left shoulder Assessment/Plan (1) Recurrent anterior dislocation of left shoulder Current Visit: Yes Status: Acute Assessment & Plan: Aaron has displaced greater tuberosity fracture. Explained to patient I think he would do best with a close reduction under IV sedation under the guidance of Dr. Ferreira. He understood the risk. These include bleeding, infection, damage to nerves or blood vessels, malunion, nonunion, possible redislocation, possible need for further surgery and the risk of medical anesthetic complications clued the risk of . He consented to this. He had the shoulder injected from anterolaterally with 20 cc 1% plain lidocaine. He then had sedation performed by the emergency room doctor with propofol and etomidate. And had the shoulder reduced there is no clear pop but the patient did seem more comfortable and rotated well after pulling on the shoulder with a sheet around his elbow. X-rays with axillary and Y and AP showed the shoulder to be reduced with the greater tuberosity fracture fairly well reduced with about 3 mm of displacement. Explained to that he should remain in the sling and avoid reaching with the shoulder. He should follow-up with Dr. Bennett This week for operative treatment of his recurrent dislocation with greater tuberosity fracture Code(s): M24.412 - RECURRENT DISLOCATION, LEFT SHOULDER Results - Labs Lab/Micro Results: Lab Results-Last 24 Hours 11/04/24 11/04/24 11/04/24 Range/Units 13:51 13:51 13:51 WBC 9.9 H (4.23-9.07) x10^3/uL RBC 5.21 (4.63-6.08) x10^6/uL Hgb 15.5 (13.7-17.5) g/dL Hct 44.8 (40.1-51.0) % MCV 86.0 (79.0-92.2) fL MCH 29.8 (25.7-32.2) pg MCHC 34.6 (32.3-36.5) g/dL RDW 11.9 (11.6-14.4) % Plt Count 273 (163-337) x10^3/uL MPV 8.5 L (9.4-12.4) fL Gran % 65.1 (34.0-67.9) % Immature Gran % (Auto) 0.6 H (0.001-0.429) % Nucleat RBC Rel Count 0.0 (0.00-0.2) % Eos # (Auto) 0.07 (0.04-0.54) x10^3/uL Immature Gran # (Auto) 0.06 H (0.001-0.031) x10^3u/L Absolute Lymphs (auto) 2.65 (1.32-3.57) x10^3/uL Absolute Monos (auto) 0.61 (0.30-0.82) x10^3/uL Absolute Nucleated RBC 0.00 (0.00-0.012) x10^3u/L Lymphocytes % 26.9 (21.8-53.1) % Monocytes % 6.2 (5.3-12.2) % Eosinophils % 0.7 L (0.8-7.0) % Basophils % 0.5 (0.2-1.2) % Absolute Granulocytes 6.41 H (1.78-5.38) x10^3/uL Basophils # 0.05 (0.01-0.08) x10^3/uL Sodium 138 (135-145) mmol/L Potassium 4.0 (3.5-5.1) mmol/L Chloride 104 (98-107) mmol/L Carbon Dioxide 20 L (22-30) mmol/L Anion Gap 18.1 H (5-15) MEQ/L BUN 13 (9-20) mg/dL Creatinine 1.08 (0.66-1.25) mg/dL Estimated GFR 94.7 ML/MIN Glucose 93 (74-106) mg/dL Calcium 9.5 (8.4-10.2) mg/dL Magnesium 1.9 (1.6-2.3) mg/dL Total Bilirubin 0.70 (0.2-1.3) mg/dL AST 34 (17-59) U/L ALT 30 (0-50) U/L Alkaline Phosphatase 75 (38-126) U/L Creatine Kinase 173 H (55-170) U/L Troponin I < 0.012 (0.000-0.033) ng/mL Serum Total Protein 7.5 (6.3-8.2) g/dL Albumin 4.8 (3.5-5.0) g/dL Ethyl Alcohol (0-10) mg/dL 11/04/24 Range/Units 14:00 WBC (4.23-9.07) x10^3/uL RBC (4.63-6.08) x10^6/uL Hgb (13.7-17.5) g/dL Hct (40.1-51.0) % MCV (79.0-92.2) fL MCH (25.7-32.2) pg MCHC (32.3-36.5) g/dL RDW (11.6-14.4) % Plt Count (163-337) x10^3/uL MPV (9.4-12.4) fL Gran % (34.0-67.9) % Immature Gran % (Auto) (0.001-0.429) % Nucleat RBC Rel Count (0.00-0.2) % Eos # (Auto) (0.04-0.54) x10^3/uL Immature Gran # (Auto) (0.001-0.031) x10^3u/L Absolute Lymphs (auto) (1.32-3.57) x10^3/uL Absolute Monos (auto) (0.30-0.82) x10^3/uL Absolute Nucleated RBC (0.00-0.012) x10^3u/L Lymphocytes % (21.8-53.1) % Monocytes % (5.3-12.2) % Eosinophils % (0.8-7.0) % Basophils % (0.2-1.2) % Absolute Granulocytes (1.78-5.38) x10^3/uL Basophils # (0.01-0.08) x10^3/uL Sodium (135-145) mmol/L Potassium (3.5-5.1) mmol/L Chloride (98-107) mmol/L Carbon Dioxide (22-30) mmol/L Anion Gap (5-15) MEQ/L BUN (9-20) mg/dL Creatinine (0.66-1.25) mg/dL Estimated GFR ML/MIN Glucose (74-106) mg/dL Calcium (8.4-10.2) mg/dL Magnesium (1.6-2.3) mg/dL Total Bilirubin (0.2-1.3) mg/dL AST (17-59) U/L ALT (0-50) U/L Alkaline Phosphatase (38-126) U/L Creatine Kinase (55-170) U/L Troponin I (0.000-0.033) ng/mL Serum Total Protein (6.3-8.2) g/dL Albumin (3.5-5.0) g/dL Ethyl Alcohol < 10 (0-10) mg/dL - Radiology Impressions Radiology Exams & Impressions: Radiology Procedures Category Date Time Status CERVICAL SPINE WO CONTRAST [CT] Stat Exams 11/04/24 13:33 Completed CHEST 1 VIEW (PORTABLE) Stat Exams 11/04/24 13:34 Completed HEAD WITHOUT CONTRAST [CT] Stat Exams 11/04/24 13:33 Completed SHOULDER Stat Exams 11/04/24 13:34 Completed SHOULDER Stat Exams 11/04/24 16:04 Taken
--- NOTE | 2024-11-04 16:42 | XRAY ---
Indication:: Post reduction. Comparison: Taken earlier in the day. 4 views left shoulder demonstrates successful reduction previous shoulder dislocation. Lateral humeral head fragment also appears improved in apposition/alignment. No other bony, articular, or soft tissue abnormalities.
[2024-11-04 17:31] VITALS: TEMP 97.2
[2024-11-04 17:51] VITALS: BP 138/82; PULSE 95; RESP 20
[2024-11-04 17:52] VITALS: O2SAT 94
== END 2024-11-04 18:07 | disposition home or self-care (01) ==
LOC: ED 13:12
DX: S01.03XA Puncture wound without foreign body of scalp, initial encounter (principal); S42.252A Displaced fracture of greater tuberosity of left humerus, initial encounter for closed fracture; W19.XXXA Unspecified fall, initial encounter; M24.412 Recurrent dislocation, left shoulder; R55 Syncope and collapse; Z79.891 Long term (current) use of opiate analgesic; Z72.0 Tobacco use
CPT/HCPCS: 23665; 36415; 70450; 71045; 72125; 73030; 80053; 82077; 82550; 83735; 84484; 85025; 93005; 93041; 94799; 96360; 96374; 96375; 99285; J1171; J2405; J2704